=== PATIENT | male | born 1970 | race Caucasian/White ===

== ENCOUNTER 2017-11-05 09:00 | Emergency (ER) | payer SELFPAY ==
[2017-11-05 09:11] VITALS: BP 116/72
[2017-11-05] MEDS ORDERED: Tetan/Diph/Pertus SYR(Tdap)* 0.5 ML SYR(BOOSTRIX) use SYR IM ONE (09:31)
--- NOTE | 2017-11-05 09:49 | ED ---
Head Injury - HPI Summary HPI Summary: Patient presents with head injury which occurred at 7:00 this morning s/p mechanical fall. He reports he was getting up in the radiology asst and tripped on some toys on the floor in the dark, losing his footing and falling forward into a counter and striking the top of his head. He denies loss of consciousness but noticed blood in his he went to feel his head, felt a flap of skin and realized he needed to get this taken care of right away. He admits his vision is a little blurred but it is unclear if this is baseline or new for him. Denies headache, nausea, vomiting, numbness, tingling, weakness, confusion , memory issues/amnesia. He denies any other injuries his result of fall specifically neck. He was able to stand after the injury and has been ambulating without difficulty since. Triage noted he was drinking alcohol last night. Patient admits he does drink alcohol but does not have a concern for withdrawal while here today. He is unsure of his last tetanus vaccine but would like to have this boosted. - History Of Current Complaint Chief Complaint: EDLacSutureRecheck Stated Complaint: HEAD LAC Time Seen by Provider: 11/05/17 09:04 Hx Obtained From: Patient Pain Intensity: 1 - Allergies/Home Medications Allergies/Adverse Reactions: Allergies Allergy/AdvReac Type Severity Reaction Status Date / Time peanut Allergy Anaphylatic Verified 11/05/17 09:24 Shock raw vegetable Allergy Numbness Verified 11/05/17 09:25 And Tingling wheat Allergy GI Upset Verified 11/05/17 09:25 PMH/Surg Hx/FS Hx/Imm Hx Previously Healthy: Yes Endocrine/Hematology History: Denies: Hx Anticoagulant Therapy, Hx Blood Disorders - Surgical History Surgery Procedure, Year, and Place: SPINAL FUSION - Immunization History Date of Tetanus Vaccine: unsure Immunizations Up to Date: Unable to Obtain/Confirm Infectious Disease History: No Infectious Disease History: Denies: Traveled Outside the [place] in Last 30 Days - Social History Lives: With Family - sister and b-i-l Alcohol Use: Daily Substance Use Type: Reports: None Hx Tobacco Use: Yes Smoking Status (MU): Current Every Day Smoker Review of Systems Constitutional: Negative Negative: Fatigue Positive: Blurred Vision. Negative: Photophobia, Diplopia Negative: Epistaxis, Dental Pain, Ear Ache Cardiovascular: Negative Negative: Chest Pain Respiratory: Negative Negative: Shortness Of Breath Gastrointestinal: Negative Negative: Abdominal Pain, Vomiting, Diarrhea, Nausea Positive: no symptoms reported Musculoskeletal: Negative Skin: Other - scalp lac Neurological: Negative Psychological: Normal All Other Systems Reviewed And Are Negative: Yes Physical Exam Triage Information Reviewed: Yes Vital Signs On Initial Exam: Initial Vitals Temp Pulse Resp BP Pulse Ox 97.9 F 84 17 116/72 96 11/05/17 09:07 11/05/17 09:07 11/05/17 09:07 11/05/17 09:07 11/05/17 09:07 Vital Signs Reviewed: Yes Appearance: Positive: Well-Appearing, No Pain Distress Skin: Positive: Warm - lac on scalp, Skin Color Reflects Adequate Perfusion Eyes: Positive: Normal, EOMI, MANNIE - no photophobia, Conjunctiva Clear ENT: Positive: Normal ENT inspection, Hearing grossly normal, Pharynx normal - atraumatic, TMs normal - no hemotympanum. Negative: Nasal drainage Neck: Positive: Supple, Nontender Respiratory/Lung Sounds: Positive: Breath Sounds Present. Negative: Stridor Cardiovascular: Positive: Normal, RRR Abdomen Description: Positive: Nontender, Soft Bowel Sounds: Positive: Present Musculoskeletal: Positive: Normal, Strength/ROM Intact Neurological: Positive: Sensory/Motor Intact, Alert, Oriented to Person Place, Time, CN Intact II-III Psychiatric: Positive: Normal Diagnostics - Vital Signs Vital Signs Temp Pulse Resp BP Pulse Ox 11/05/17 09:07 97.9 F 84 17 116/72 96 - Laboratory Lab Statement: Any lab studies that have been ordered have been reviewed, and results considered in the medical decision making process. Discharge - Sign-Out/Discharge Documenting (check all that apply): Patient Departure - Discharge Plan Condition: Stable Disposition: HOME Patient Education Materials: Head Injury (ED), Staple Care (ED), Laceration (ED ) Referrals: [facility] [Outside] Additional Instructions: Rest, ice, keep head elevated to prevent bleeding, headache today Take acetaminophen 650mg-1000mg every 6 hours as needed for pain Keep wound clean and covered for 24-48 hours - after that time, you may remove dressing and gently wash wound with soap and water - rinse well and pat dry to avoid disrupting your sadie/causing bleeding Follow-up with PCP in 7 days for wound check, staple removal. Call today to schedule an appointment. *If in the meantime you develop bleeding, purulent drainage, fever, chills, return to the ED *If you develop headache, dizziness, change in vision, vomiting, numbness, tingling, weakness, syncope, return to the ED - Billing Disposition and Condition Condition: STABLE Disposition: Home
[2017-11-05] MEDS ORDERED: Lidocain 1% EPI 1:100,000 * 30 ML MDV INJ ONE (10:22)
[2017-11-05] MEDS ORDERED: Lidocaine 2% EPI 1:200000 MPF*10-20 ML VIAL ONE (10:27)
--- NOTE | 2017-11-05 10:33 | RAD ---
Indication: Fall with superior scalp injury. Flap laceration at the scalp. Comparison: No prior exams available on the [facility] PACS for comparison. Technique: Noncontrast CT vertex of skull through foramen magnum. Report: Frontal and RIGHT frontal scalp edema/infiltrative hematoma. No loculated hematoma evident. No conspicuous foreign body evident. Negative for calvarial or skull base fracture. Mild prominence of the cerebral sulci and moderate prominence of the cerebellar fissures. Negative for gallardo matter white matter obscuration, intra or extra-axial hemorrhage, or mass effect. Unremarkable partially visualized orbital contents. Partial opacification of the ethmoid sinuses. Negative for paranasal sinus fluid levels within the [id number]. Clear mastoid air spaces. IMPRESSION: #. No CT evidence for traumatic brain injury or calvarial fracture. #. Frontal and RIGHT frontal scalp edema/infiltrative hematoma corresponding with history of scalp laceration. No loculated hematoma evident. No conspicuous foreign body evident. #. Mild cerebral and mild to moderate cerebellar involutional change.
[2017-11-05] MEDS ORDERED: Bacitracin OINTMENT* 0.5% 0.5 oz TUBE ONE (11:43)
[2017-11-05] MEDS ORDERED: Bacitracin OINTMENT* 0.5% 0.5 oz TUBE TOPICAL ONE (11:49)
[2017-11-05] MEDS ORDERED: Acetaminophen TAB* 325 MG PO ONE (12:02)
== END 2017-11-05 12:27 | disposition home or self-care (01) ==
LOC: ED 09:00
DX: S01.01XA Laceration without foreign body of scalp, initial encounter (principal); F17.200 Nicotine dependence, unspecified, uncomplicated; W18.09XA Striking against other object with subsequent fall, initial encounter; Y92.9 Unspecified place or not applicable
CPT/HCPCS: 12001; 70450; 90471; 90715; 99282; A9270-GY

== ENCOUNTER 2017-11-10 08:30 | Inpatient (IN) | payer SELFPAY ==
[2017-11-10] MEDS ORDERED: NS 0.9% 1000 ML* 1,000 ML IV ONE ×2 (09:12→09:13)
[2017-11-10 09:31] LABS: Hematocrit 31 % (42-52); Hemoglobin 10.6 g/dl (14.0-18.0); Mean Corpuscular HGB Conc 34 g/dl (31-36); Mean Corpuscular Hemoglobin 35 pg (27-31); Mean Corpuscular Volume 103 fL (80-94); Red Blood Count 3.02 10^6/ul (4.00-5.40); Red Cell Distribution Width 13 % (10.5-15); White Blood Count 10.5 10^3/ul (3.5-10.8)
[2017-11-10 09:36] LABS: INR 1.18 (0.77-1.02)
[2017-11-10 09:45] LABS: EGFR Non-African American 106.7 (>60)
[2017-11-10 10:17] LABS: ABS Basophils 0 10^3/ul (0-0.2); ABS Eosinophils 0 10^3/ul (0-0.6); ABS Lymphocytes 0.8 10^3/ul (1.0-4.8); ABS Monocytes 1.3 10^3/ul (0-0.8); ABS Neutrophils 8.4 10^3/ul (1.5-7.7); ABS Nucleated RBC 0 10^3/ul; Eosinophil % 0 % (0-6); Lymphocyte % 7.4 % (25-47); Mean Platelet Volume 10.5 um3 (7.4-10.4); Nucleated Red Blood Cells % 0; Platelet Count 77 10^3/ul (150-450)
[2017-11-10] MEDS: Pantoprazole IV* 80 MG in NS 0.9% 250 ML* 250 ML IVPB SCH ×2 (10:43→20:36)
--- NOTE | 2017-11-10 10:53 | ED ---
GI/ HPI - HPI Summary HPI Summary: Patient is a 47-year-old male presenting to the ED after he woke this morning and was unable to make it to the restroom, complaining of a large amount of mixture between bright red blood in the stool with clots as well as dark stool. He is also endorsing yesterday having 1 times emesis of black "oil." He states he has never had any of these before. He states he was seen in the ED 5 days ago after sustaining a fall with several sadie to the head. CT brain obtained which shows no acute intracranial abnormality, but does show some involutional change which is at baseline for patient. PMH includes celiac disease and involutional change in the cerebellum. Smokes half a pack a day, endorses drinking 3-4 beers daily and denies any drug use. He states he recently moved here from [place]. Brother called to the charge nurse: States patient drinks from upon awakening in the morning until passing out at bedtime. He is currently awaiting to get into a treatment facility/detox center for such. - History of Current Complaint Chief Complaint: EDGIBleed Time Seen by Provider: 11/10/17 08:56 Stated Complaint: NAUSEA/DIZZINESS Hx Obtained From: Patient Onset/Duration: Started Days Ago Timing: Constant Severity: Moderate Current Severity: Moderate Pain Intensity: 0 Associated Signs and Symptoms: Positive: Black Tarry Stool, Bright Red Blood w/ Stool, Melena. Negative: Hematemesis, Pallor, Dizziness, Weakness, Lightheadedness, Abdominal Pain, UTI Symptoms Aggravating Factor(s): Nothing Alleviating Factor(s): Nothing - Yours - Allergy/Home Medications Allergies/Adverse Reactions: Allergies Allergy/AdvReac Type Severity Reaction Status Date / Time gluten Allergy See Comment Verified 11/10/17 09:06 peanut Allergy Anaphylatic Verified 11/10/17 09:06 Shock raw vegetable Allergy Numbness Verified 11/10/17 09:06 And Tingling wheat Allergy GI Upset Verified 11/10/17 09:06 Home Medications: Home Medications Ibuprofen TAB* [Motrin TAB* 400 MG] 400 mg PO Q6HR PRN 11/10/17 [History Confirmed 11/10/17] PMH/Surg Hx/FS Hx/Imm Hx Previously Healthy: Yes Endocrine/Hematology History: Denies: Hx Anticoagulant Therapy, Hx Blood Disorders - Surgical History Surgery Procedure, Year, and Place: SPINAL FUSION - Immunization History Date of Tetanus Vaccine: unsure Hx Pertussis Vaccination: No Immunizations Up to Date: Yes Infectious Disease History: No Infectious Disease History: Denies: Traveled Outside the [place] in Last 30 Days - Social History Occupation: Unemployed Lives: With Family Alcohol Use: Daily Alcohol Amount: 3-4beers/day Hx Substance Use: No Substance Use Type: Reports: None Hx Tobacco Use: Yes Smoking Status (MU): Light Every Day Tobacco Smoker Review of Systems Constitutional: Negative Negative: Fever, Chills, Fatigue, Skin Diaphoresis Negative: Palpitations, Chest Pain Negative: Shortness Of Breath, Cough Positive: Abdominal Pain - epigastric pain, Vomiting, Diarrhea - bright red blood with melena and clotting stool, Nausea Genitourinary: Negative Positive: no symptoms reported, see HPI Negative: Arthralgia, Myalgia Skin: Negative Neurological: Negative All Other Systems Reviewed And Are Negative: Yes Physical Exam Triage Information Reviewed: Yes Vital Signs On Initial Exam: Initial Vitals Temp Pulse Resp BP Pulse Ox 96.9 F 78 16 129/67 99 11/10/17 08:33 11/10/17 08:33 11/10/17 08:33 11/10/17 08:33 11/10/17 08:33 Vital Signs Reviewed: Yes Appearance: Positive: Well-Appearing, Well-Nourished Skin: Positive: Warm, Skin Color Reflects Adequate Perfusion Head/Face: Positive: Normal Head/Face Inspection Eyes: Positive: EOMI, MANNIE, Conjunctiva Clear Neck: Positive: Supple Respiratory/Lung Sounds: Positive: Clear to Auscultation, Breath Sounds Present Cardiovascular: Positive: Tachycardia Abdomen Description: Positive: Other: - tenderness to the epigastric region Bowel Sounds: Positive: Present Musculoskeletal: Positive: Normal, Strength/ROM Intact Neurological: Positive: Sensory/Motor Intact, Alert, Oriented to Person Place, Time, Speech Normal, Other - tremors in hands bilaterally AVPU Assessment: Alert Diagnostics - Vital Signs Vital Signs Temp Pulse Resp BP Pulse Ox 11/10/17 10:14 103 14 111/78 100 11/10/17 10:00 99 14 100 11/10/17 09:59 98 16 104/86 100 11/10/17 09:49 114 13 112/84 100 11/10/17 09:31 110 18 127/65 100 11/10/17 09:08 120 15 120/64 100 11/10/17 09:00 130 24 100 11/10/17 08:58 9 11/10/17 08:33 96.9 F 78 16 129/67 99 - Laboratory Lab Results: Lab Results 11/10/17 11/10/17 11/10/17 Range/Units 09:17 09:17 09:17 WBC 10.5 (3.5-10.8) 10^3/ul RBC 3.02 L (4.00-5.40) 10^6/ul Hgb 10.6 L (14.0-18.0) g/dl Hct 31 L (42-52) % MCV 103 H (80-94) fL MCH 35 H (27-31) pg MCHC 34 (31-36) g/dl RDW 13 (10.5-15) % Plt Count 77 L (150-450) 10^3/ul MPV 10.5 H (7.4-10.4) um3 Neut % (Auto) 80.1 (38-83) % Lymph % (Auto) 7.4 L (25-47) % Monona % (Auto) 12.3 H (0-7) % Eos % (Auto) 0 (0-6) % Baso % (Auto) 0.2 (0-2) % Absolute Neuts (auto) 8.4 H (1.5-7.7) 10^3/ul Absolute Lymphs (auto) 0.8 L (1.0-4.8) 10^3/ul Absolute Monos (auto) 1.3 H (0-0.8) 10^3/ul Absolute Eos (auto) 0 (0-0.6) 10^3/ul Absolute Basos (auto) 0 (0-0.2) 10^3/ul Absolute Nucleated RBC 0 10^3/ul Nucleated RBC % 0 INR (Anticoag Therapy) 1.18 H (0.77-1.02) APTT 31.2 (26.0-36.3) seconds Sodium 136 (135-145) mmol/L Potassium 4.5 (3.5-5.0) mmol/L Chloride 100 L (101-111) mmol/L Carbon Dioxide 21 L (22-32) mmol/L Anion Gap 15 H (2-11) mmol/L BUN 22 (6-24) mg/dL Creatinine 0.78 (0.67-1.17) mg/dL Est GFR ( Amer) 129.1 (>60) Est GFR (Non-Af Amer) 106.7 (>60) BUN/Creatinine Ratio 28.2 H (8-20) Glucose 212 H (70-100) mg/dL Calcium 8.7 (8.6-10.3) mg/dL Total Bilirubin 1.50 H (0.2-1.0) mg/dL AST 82 H (13-39) U/L ALT 36 (7-52) U/L Alkaline Phosphatase 123 H (34-104) U/L Total Protein 5.5 L (6.4-8.9) g/dL Albumin 3.5 (3.2-5.2) g/dL Globulin 2.0 (2-4) g/dL Albumin/Globulin Ratio 1.8 (1-3) Blood Type Antibody Screen 11/10/17 Range/Units 09:17 WBC (3.5-10.8) 10^3/ul RBC (4.00-5.40) 10^6/ul Hgb (14.0-18.0) g/dl Hct (42-52) % MCV (80-94) fL MCH (27-31) pg MCHC (31-36) g/dl RDW (10.5-15) % Plt Count (150-450) 10^3/ul MPV (7.4-10.4) um3 Neut % (Auto) (38-83) % Lymph % (Auto) (25-47) % Monona % (Auto) (0-7) % Eos % (Auto) (0-6) % Baso % (Auto) (0-2) % Absolute Neuts (auto) (1.5-7.7) 10^3/ul Absolute Lymphs (auto) (1.0-4.8) 10^3/ul Absolute Monos (auto) (0-0.8) 10^3/ul Absolute Eos (auto) (0-0.6) 10^3/ul Absolute Basos (auto) (0-0.2) 10^3/ul Absolute Nucleated RBC 10^3/ul Nucleated RBC % INR (Anticoag Therapy) (0.77-1.02) APTT (26.0-36.3) seconds Sodium (135-145) mmol/L Potassium (3.5-5.0) mmol/L Chloride (101-111) mmol/L Carbon Dioxide (22-32) mmol/L Anion Gap (2-11) mmol/L BUN (6-24) mg/dL Creatinine (0.67-1.17) mg/dL Est GFR ( Amer) (>60) Est GFR (Non-Af Amer) (>60) BUN/Creatinine Ratio (8-20) Glucose (70-100) mg/dL Calcium (8.6-10.3) mg/dL Total Bilirubin (0.2-1.0) mg/dL AST (13-39) U/L ALT (7-52) U/L Alkaline Phosphatase (34-104) U/L Total Protein (6.4-8.9) g/dL Albumin (3.2-5.2) g/dL Globulin (2-4) g/dL Albumin/Globulin Ratio (1-3) Blood Type A Positive Antibody Screen Negative Result Diagrams: 11/10/17 09:17 11/10/17 09:17 Lab Statement: Any lab studies that have been ordered have been reviewed, and results considered in the medical decision making process. GIGU Course/Dx - Course Course Of Treatment: During the course of treatment, the patient is evaluated for upper and lower GI bleed. He arrives today with bright red blood and dark tarry stools down the bilateral legs which he states he was unable to make it to the restroom in time. He is also endorsing will like emesis yesterday, but none currently. He states he feels otherwise well. Patient has a slightly jaundiced appearance and a slight tremor bilaterally. EOMI/MANNIE. Bowel sounds decreased. Lungs CTA, RRR. No pain on palpation throughout the abdomen. NO CVA tenderness. Denies any abdominal pain, nausea. States he has been having diarrhea over the past week and last normal bowel movement was over 1 week ago. He has not noticed any blood in the stool however. Patient does not take any medication, is a smoker and heavy drinker. On arrival, he is noted to be tachycardic at 125, other vital signs are stable. GI, Dr. Baker called to make aware of patient. Recommended continuing fluids and add octreotide. nLabs obtained which show a slightly decreased H&H of 10 and 31 and is currently thrombocytopenic. GI will see patient in the ED and will be admitted to hospital. - Diagnoses Provider Diagnoses: GI bleed - Physician Notifications Discussed Care Of Patient With: Elissa Baker Discharge - Sign-Out/Discharge Documenting (check all that apply): Patient Departure - - Discharge Plan Condition: Stable Disposition: ADMITTED TO [facility] - Billing Disposition and Condition Condition: STABLE Disposition: Admitted to [facility]
[2017-11-10] MEDS ORDERED: Octreotide Acetate* 50 MCG in NS 0.9% 50 ML* 50 ML IVPB ONE (11:08)
[2017-11-10] MEDS ORDERED: Ondansetron INJ* 2 MG/ML VIAL IV ONE (11:51)
[2017-11-10] MEDS ORDERED: Ondansetron INJ* 2 MG/ML VIAL IV PRN (12:13)
[2017-11-10] MEDS: NS 0.9% 1000 ML* 2,000 ML IV ONE ×2 (12:17→12:18)
--- NOTE | 2017-11-10 12:33 | HP ---
H&P (Free Text) History and Physical: [facility] History and Physical CC: coffee ground emesis HPI: 47M with spinal stenosis, neuropathy, celiac disease, h/o etoh dependence persents with coffee ground emesis and melena. The patient states the symptoms started at about 330am. He never had this before. He also reports weakness and lightheadedness. He had been evaluated in the past for his celiac disease with an egd which did not show any ulcers or varices at that time. The patient reports he was once told he had fatty liver but not cirrhosis. He drinks daily since the age of 21. His last drink was at 730pm yesterday. He denies any history of withdrawal. He also reports abdominal discomfort and nausea. No chest pain or shortness of breath. No fever or chills. ROS - as per HPI PMHx - spinal stenosis, neuropathy, celiac disease, h/o etoh dependence PSHx - spinal fusion All - gluten SocHx - daily drinker, 1/2ppd smoker, no drugs FamHx - denies PE Vital Signs: Temp Pulse Resp BP Pulse Ox 96.9 F 93 12 106/72 100 11/10/17 08:33 11/10/17 12:00 11/10/17 12:00 11/10/17 11:49 11/10/17 12:00 Gen - uncomfortable HEENT - ncat, eomi, perrl neck - no jvd cv - s1/s2, tachy pulm - cta, no wheeze abd - soft, mild tenderness ext - no cce neuro - non-focal Labs Laboratory Results - last 24 hr 11/10/17 11/10/17 11/10/17 09:17 09:17 09:17 WBC 10.5 RBC 3.02 L Hgb 10.6 L Hct 31 L MCV 103 H MCH 35 H MCHC 34 RDW 13 Plt Count 77 L MPV 10.5 H Neut % (Auto) 80.1 Lymph % (Auto) 7.4 L Burke % (Auto) 12.3 H Eos % (Auto) 0 Baso % (Auto) 0.2 Absolute Neuts (auto) 8.4 H Absolute Lymphs (auto) 0.8 L Absolute Monos (auto) 1.3 H Absolute Eos (auto) 0 Absolute Basos (auto) 0 Absolute Nucleated RBC 0 Nucleated RBC % 0 INR (Anticoag Therapy) 1.18 H APTT 31.2 Sodium 136 Potassium 4.5 Chloride 100 L Carbon Dioxide 21 L Anion Gap 15 H BUN 22 Creatinine 0.78 Est GFR ( Amer) 129.1 Est GFR (Non-Af Amer) 106.7 BUN/Creatinine Ratio 28.2 H Glucose 212 H Calcium 8.7 Magnesium 1.6 L Total Bilirubin 1.50 H AST 82 H ALT 36 Alkaline Phosphatase 123 H Total Protein 5.5 L Albumin 3.5 Globulin 2.0 Albumin/Globulin Ratio 1.8 Serum Alcohol < 10 Blood Type Antibody Screen 11/10/17 09:17 WBC RBC Hgb Hct MCV MCH MCHC RDW Plt Count MPV Neut % (Auto) Lymph % (Auto) Burke % (Auto) Eos % (Auto) Baso % (Auto) Absolute Neuts (auto) Absolute Lymphs (auto) Absolute Monos (auto) Absolute Eos (auto) Absolute Basos (auto) Absolute Nucleated RBC Nucleated RBC % INR (Anticoag Therapy) APTT Sodium Potassium Chloride Carbon Dioxide Anion Gap BUN Creatinine Est GFR ( Amer) Est GFR (Non-Af Amer) BUN/Creatinine Ratio Glucose Calcium Magnesium Total Bilirubin AST ALT Alkaline Phosphatase Total Protein Albumin Globulin Albumin/Globulin Ratio Serum Alcohol Blood Type A Positive Antibody Screen Negative Imaging CXR - pending RUQ sono - pending Impression 47M spinal stenosis, neuropathy, celiac disease, h/o etoh dependence presents with symptomatic anemia 2/2 ugi bleed Plan Neuro/psych - etoh dependence - monitor for withdrawal - thiamine/folate/mvi - wam protocol - ativan prn - sw consult CV - tachycardia - 2/2 volume depletion - iv hydration - bp ok Pulm - smoker - educated on benefits of smokng cessation - nicotine replacement ID - no evidence of infection GI - ugi bleed - npo - check ruq sono to eval for cirrhosis - anti-emetics prn - ppi/octreotide gtts - gi consult Renal - monitor lytes - monitor io Heme - symptomatic anemia - 2/2 gi bleed - serial cbc - transfuse to keep hgb > 7 Endo - check fs, niss Lines - piv PPx - gi/dvt Full Code Admit to ICU Critical Care Time: 85 mins
[2017-11-10] MEDS ORDERED: LORazepam INJ* 2 MG/ML 1 ML VIAL IV PUSH SCH (13:00)
--- NOTE | 2017-11-10 13:09 | RAD ---
INDICATION: Aspiration. COMPARISON: There are no relevant prior studies available for comparison. TECHNIQUE: A portable view of the chest was obtained. FINDINGS: Cardiac and mediastinal contours appear to be within normal limits. The lungs are hyperinflated and clear. No pleural effusion is seen. IMPRESSION: NO EVIDENCE FOR ACUTE DISEASE.
[2017-11-10 14:10] LABS: ABS Basophils 0 10^3/ul (0-0.2); ABS Eosinophils 0 10^3/ul (0-0.6); ABS Lymphocytes 0.5 10^3/ul (1.0-4.8); ABS Monocytes 0.8 10^3/ul (0-0.8); ABS Nucleated RBC 0 10^3/ul; Eosinophil % 0.1 % (0-6); Hematocrit 24 % (42-52); Hemoglobin 8.2 g/dl (14.0-18.0); Lymphocyte % 6.4 % (25-47); Mean Corpuscular HGB Conc 34 g/dl (31-36); Mean Corpuscular Hemoglobin 35 pg (27-31); Mean Corpuscular Volume 103 fL (80-94); Mean Platelet Volume 10.7 um3 (7.4-10.4); Nucleated Red Blood Cells % 0; Platelet Count 52 10^3/ul (150-450); Red Blood Count 2.33 10^6/ul (4.00-5.40); Red Cell Distribution Width 14 % (10.5-15); White Blood Count 8.4 10^3/ul (3.5-10.8)
[2017-11-10] MEDS ORDERED: fentaNYL* 50 MCG/ML 2 ML VIAL (100 MCG VIAL) ONE (14:27)
[2017-11-10] MEDS ORDERED: KETAMINE HCL* 50 MG/ML 10 ML VIAL ONE (14:27)
[2017-11-10] MEDS ORDERED: Midazolam* 1 MG/ML 5 ML VIAL (5 MG) ONE (14:27)
[2017-11-10] MEDS ORDERED: Atracurium* 10 MG/ML 10 ML VIAL ONE (14:27)
[2017-11-10] MEDS ORDERED: Magnesium Sulfate IV* 3 GM in NS 0.9% 100 ML* 100 ML IVPB ONE (14:38)
[2017-11-10] MEDS ORDERED: Octreotide Acetate* 500 MCG in NS 0.9% 100 ML* 100 ML IVPB SCH (15:00)
[2017-11-10] MEDS ORDERED: Mouth Piece, Nicotine* 1 EACH CARTRIDGE INH PRN (15:23)
[2017-11-10] MEDS ORDERED: Lidocaine 2% PF * 5 ML VIAL ONE (17:10)
[2017-11-10] MEDS ORDERED: Phenylephrine IV* 40 MCG/ML 10 ML SYRINGE ONE (17:10)
[2017-11-10] MEDS ORDERED: Dexamethasone IV* 4 MG/ML 1 ML (4 MG) ONE (17:11)
[2017-11-10] MEDS ORDERED: Succinylcholine* 20 MG/ML 10 ML VIAL ONE (17:11)
[2017-11-10] MEDS ORDERED: Propofol* 10 MG/ML 20 ML BTL IV PUSH ONE (17:11)
--- NOTE | 2017-11-10 19:52 | RAD ---
EXAM: US Abdomen Limited, Right Upper Quadrant CLINICAL HISTORY: 47 years old, male; Signs and symptoms; Vomiting; Patient HX: Gassy, vomiting blood, bloddy diarrhea since last night. ; Additional info: Eval for cirrhosis TECHNIQUE: Real-time ultrasound of the right upper quadrant with image documentation. COMPARISON: No relevant prior studies available. FINDINGS: Liver: Diffusely echogenic liver. No intrahepatic bile duct dilation. Gallbladder: Sonographic Lynne's sign is negative. No gallstones. Common bile duct: The common bile duct measures up to 0.3 cm in diameter. No stones. No dilation. Pancreas: Unremarkable as visualized. Right kidney: The right kidney measures 10.3 cm in length. Normal echogenicity. No hydronephrosis or stones. Aorta: The proximal aorta measures 1.9 cm in maximal diameter. IMPRESSION: Echogenic liver, which could reflect hepatic steatosis or other chronic underlying hepatocellular disease. To contact [facility] with a general question: [facility] - [phone] For direct physician to physician contact: Physician Hotline - [phone] [facility] ([facility] Facility ID #[id number])
[2017-11-10 19:57] LABS: ABS Basophils 0 10^3/ul (0-0.2); ABS Eosinophils 0 10^3/ul (0-0.6); ABS Lymphocytes 0.5 10^3/ul (1.0-4.8); ABS Monocytes 0.2 10^3/ul (0-0.8); ABS Neutrophils 5.7 10^3/ul (1.5-7.7); ABS Nucleated RBC 0 10^3/ul; Eosinophil % 0 % (0-6); Hematocrit 23 % (42-52); Hemoglobin 7.8 g/dl (14.0-18.0); Lymphocyte % 7.2 % (25-47); Mean Corpuscular HGB Conc 35 g/dl (31-36); Mean Corpuscular Hemoglobin 35 pg (27-31); Mean Corpuscular Volume 102 fL (80-94); Mean Platelet Volume 10.8 um3 (7.4-10.4); Nucleated Red Blood Cells % 0; Platelet Count 53 10^3/ul (150-450); Red Blood Count 2.21 10^6/ul (4.00-5.40); Red Cell Distribution Width 13 % (10.5-15); White Blood Count 6.3 10^3/ul (3.5-10.8)
[2017-11-10] MEDS: Mouth Piece, Nicotine* 1 EACH CARTRIDGE INH PRN (20:05)
[2017-11-10] MEDS: Nicotine Inhaler* 10 MG AMP INH PRN (20:05)
[2017-11-10 20:10] LABS: EGFR Non-African American 170.3 (>60)
[2017-11-10] MEDS: cefTRIAXone* 1 GM in NS 0.9% 50 ML BAG IVPB SCH (22:54)
--- NOTE | 2017-11-11 00:40 | CONS ---
CONSULTATION REPORT: DATE OF CONSULT: 11/10/17 REASON FOR CONSULT: Concern for GI bleeding. HISTORY OF PRESENT ILLNESS: Mr. Osman is a 47-year-old gentleman with a history of spinal stenosis, neuropathy, arthritis, celiac disease, alcohol abuse , and fatty liver disease, who is admitted with coffee-ground emesis and melena/ hematochezia. Mr. Osman provides the majority of his history. He recently moved from [place]. He states that he was in his usual state of health until last week when he developed an URI/cold. He was using ibuprofen for fever and aches for a week or two. He also had an episode in which he fell and hit his head last week and was seen [place] [facility] [place] he received sadie. ]Last night he started feeling abdominal pressure and discomfort in his epigastric area as well as nausea. He then began vomiting up black liquid. This happened 5 to 6 times over the night. He did not see any red blood in the emesis. This morning, he developed an episode of maroon, bloody and black stool with some clot. He had some fecal incontinence with this large bloody stool. He reports having worsening of his subacute to chronic balance issues today. He again states that he was using ibuprofen at least for the past week up to 3 times a day for the URI cold symptoms as well as the discomfort related to the head lac. He states that he drinks a few beers per day. Nursing informed me that patient's brother called and told the ER staff that the patient "drinks all day long." The patient states that he was told a while ago that he had a fatty liver. He thought perhaps it was mentioned a scarred liver, but he does not recognize cirrhosis as something he has been told he had in the past. He recalls having had an EGD done while in [place] in May 2015. They were apparently looking for celiac disease, which was apparently confirmed on that EGD. He also thinks that intestinal polyp and gastritis were noted at the EGD. He reports only rare acid indigestion and is not any PPI. PAST MEDICAL HISTORY/PAST SURGICAL HISTORY: Spinal stenosis with spinal fusion surgery in the past, neuropathy in bilateral lower extremities, arthritis, alcoholism or at least heavy alcohol use, some degree of liver disease question fatty versus alcohol (with unknown extent or severity), celiac disease, possible history of gastritis. MEDICATIONS: The patient reports only ibuprofen as needed. ALLERGIES: No known medical allergies. FAMILY HISTORY: The patient denies any family history of GI or liver disease. SOCIAL HISTORY: Moved recently from [place]. Previously working in [employer], not working at the moment. Drinks daily with quantity unclear. Smokes half pack a day. Denies drug use. REVIEW OF SYSTEMS: 10 out of 14 systems reviewed and negative except as above. PHYSICAL EXAM: Vital Signs: Heart rate up to 120, blood pressure 130s/70s, satting well on room air. General: Mildly anxious and tremulous gentleman. Able to provide history. No acute distress. HEENT: There is a stapled laceration on head. Pupils are anicteric. Neck: Supple. Trachea midline. Cardiovascular: Tachycardic, normal S1, S2. Pulmonary: Breathing comfortably. Lungs clear. Abdomen: Positive bowel sounds, soft, nontender, nondistended. No clear ascitics. Extremities: No edema. DIAGNOSTIC STUDIES/LAB DATA: Labs reviewed from initial admission. Notable for white count 10.5 and hematocrit of 31 with a platelet count 77. INR is 1.18. Comprehensive panel notable for AST and ALT that are mildly elevated at 82 and 36. Alk phos of 123, bilirubin of 1.5. Repeat labs seems to demonstrate that hematocrit dropped to 24 and then 23 on repeat. Studies: No available studies at the time of consult. IMPRESSION AND RECOMMENDATIONS: Mr. Osman is a 47-year-old gentleman with a history of heavy alcohol use, celiac disease, spinal stenosis, and fatty liver versus alcoholic liver disease of unknown severity, who is admitted with coffee- ground emesis and melena/hematochezia x1 day. Mr Osman is tachycardic, although he appears to be fluid responsive on reassessment. Hemodynamically otherwise stable. No further episodes of coffee- ground emesis since arrival. However, I am quite concerned about an upper GI bleed in this gentleman. Risk factors for peptic ulcer disease include his history of ibuprofen use over the last week. He also has risk factors for cirrhosis given his heavy alcohol use and supported by the abnormal LFTs and thrombocytopenia. Therefore, variceal bleed should also be considered in this case. - n.p.o. - IV PPI drip. - octreotide drip. - continuing to monitor CBC every 6 to 8 hours. - will plan for urgent EGD today likely with anesthesia given concern for possible significant bleeding source in upper GI tract as well as potential difficulty sedating a gentleman who drinks heavily. Thank you very much for this consult. Procedure report and final recommendations to follow. [id number]/[facility] #: [id number] MTDD
--- NOTE | 2017-11-11 00:48 | PRO ---
PROCEDURE REPORT: DATE OF PROCEDURE: 11/10/17 PROCEDURE: EGD. INDICATION: Coffee-ground emesis and melena/hematochezia. MEDICATIONS GIVEN: By anesthesia service. DESCRIPTION OF PROCEDURE: Full disclosure of risks were reviewed with the patient as detailed on the consent form. The patient was placed in left lateral decubitus position and monitored with continuous pulse oximetry, interval blood pressure monitoring, and direct observation. A bite block was placed between the teeth. An Olympus gastroscope was then inserted into the patient's mouth, advanced down the esophagus, into the stomach, and into the third portion of the duodenum. FINDINGS: Initial intubation into the esophagus was quite difficult. It is unclear if there was simply edema or if there is some aberrant anatomy. Ultimately, the scope was able to be slowly and carefully advanced into the esophagus. E: - There were no esophageal varices appreciated. - There were multiple scattered tiny esophageal erosions. There was a slightly larger erosion with eschar on the distal esophagus near the GE junction. There was no active bleeding from this area. Biopsied. G: - Scope was then slowly passed into the stomach. Stomach was examined in forward and retroflex views. There was no fresh or old blood seen anywhere in the stomach. - There were 3 medium-sized gastric ulcers ranging from 0.5 to 1 cm. These ulcers were clean based. - There was a very large (2-3 cm) and deep ulcer in the prepyloric antrum. This ulcer was largely clean based with the exceptions of a few flat segmented spots. No high risk stigmata felt to be targets for endotherapy. - A biopsy was obtained from the gastric antrum to send for CLOtes to rule out H. pylori. D: - The scope was then slowly advanced into the duodenum. - There was erythema without overt ulceration or erosion in the duodenal bulb. - No fresh or old blood was seen in the duodenum. The scope was then slowly withdrawn from the patient. He tolerated the procedure well and was returned to the recovery room. IMPRESSION: 1. Relatively difficult intubation into the esophagus, unclear if this is related to an altered anatomy versus edema. 2. No fresh or old blood seen on examination of the upper GI tract. 3. Several small/medium clean-based ulcers in the gastric antrum. A large and deep prepyloric gastric ulcer without high risk stigmata also noted. These are felt to be source of bleeding and anemia. 5. Erythema in the duodenal bulb without ulcers or erosions. 6. No esophageal or gastric varices. RECOMMENDATIONS: 1. Continue IV PPI for 72 hours . 2. Discontinue octreotide. 3. Given some concern for underlying cirrhosis, it may be prudent to begin a course of ceftriaxone as SBP prophylaxis while awaiting further workup to clarify if cirrhosis present (US pending at time of note) 4. Would keep n.p.o. for the rest of the evening. Can start clears and slowly advance over the next 1 to 2 days if hematocrit remains stable. 5. Closely monitor blood counts every 6 to 8 hours. 6. We will await CLOtest and esophageal biopsies. 7. Avoid NSAIDs. 8. Patient will need repeat EGD in 6-8 weeks to reassess gastric ulcers. [id number]/[facility] #: [id number] MTDD
[2017-11-11 01:15] LABS: ABS Basophils 0 10^3/ul (0-0.2); ABS Eosinophils 0 10^3/ul (0-0.6); ABS Lymphocytes 0.5 10^3/ul (1.0-4.8); ABS Monocytes 0.2 10^3/ul (0-0.8); ABS Neutrophils 4.5 10^3/ul (1.5-7.7); ABS Nucleated RBC 0 10^3/ul; Eosinophil % 0 % (0-6); Hematocrit 21 % (42-52); Hemoglobin 7.3 g/dl (14.0-18.0); Lymphocyte % 9.8 % (25-47); Mean Corpuscular HGB Conc 34 g/dl (31-36); Mean Corpuscular Hemoglobin 35 pg (27-31); Mean Corpuscular Volume 102 fL (80-94); Mean Platelet Volume 10.9 um3 (7.4-10.4); Nucleated Red Blood Cells % 0; Platelet Count 52 10^3/ul (150-450); Red Cell Distribution Width 14 % (10.5-15); White Blood Count 5.2 10^3/ul (3.5-10.8)
[2017-11-11] MEDS: Nicotine Inhaler* 10 MG AMP INH PRN (02:10)
[2017-11-11 04:56] LABS: ABS Basophils 0 10^3/ul (0-0.2); ABS Eosinophils 0 10^3/ul (0-0.6); ABS Lymphocytes 0.6 10^3/ul (1.0-4.8); ABS Monocytes 0.4 10^3/ul (0-0.8); ABS Nucleated RBC 0 10^3/ul; Eosinophil % 0 % (0-6); Hematocrit 20 % (42-52); Hemoglobin 6.9 g/dl (14.0-18.0); Lymphocyte % 11.6 % (25-47); Mean Corpuscular HGB Conc 34 g/dl (31-36); Mean Corpuscular Hemoglobin 35 pg (27-31); Mean Corpuscular Volume 103 fL (80-94); Mean Platelet Volume 11.1 um3 (7.4-10.4); Nucleated Red Blood Cells % 0; Platelet Count 51 10^3/ul (150-450); Red Blood Count 1.96 10^6/ul (4.00-5.40); Red Cell Distribution Width 13 % (10.5-15); White Blood Count 5.1 10^3/ul (3.5-10.8)
[2017-11-11 04:59] LABS: INR 1.08 (0.77-1.02)
[2017-11-11 05:11] LABS: EGFR Non-African American 186.8 (>60)
[2017-11-11] MEDS: Pantoprazole IV* 80 MG in NS 0.9% 250 ML* 250 ML IVPB SCH ×2 (06:46→16:54)
[2017-11-11] MEDS: Thiamine TAB* 100 MG TAB PO SCH (08:08)
[2017-11-11] MEDS: Multivitamins/Minerals TAB PO SCH (08:09)
[2017-11-11] MEDS: Folic Acid TAB* 1 MG PO SCH (08:09)
--- NOTE | 2017-11-11 09:41 | PN ---
Date of Service: 11/11/17 Critical Care Services: HPI: 47M with spinal stenosis, neuropathy, celiac disease, h/o etoh dependence persents with UGI Bleed 11/11: Multiple ulcers in the stomach on EGD. No further bleeding. Vital Signs: Temp Pulse Resp BP SpO2 FiO2 99.2 F 79 28 97/64 88 11/11/17 07:52 11/11/17 09:00 11/11/17 09:00 11/11/17 08:50 11/11/17 09:00 Physical Exam: Gen - uncomfortable HEENT - ncat, eomi, perrl neck - no jvd cv - s1/s2, tachy pulm - cta, no wheeze abd - soft, mild tenderness ext - no cce neuro - non-focal Fluid Balance (Past 24 Hours): I= O= Net Intake & Output 11/09/17 11/10/17 11/11/17 11/12/17 06:59 06:59 06:59 06:59 Intake Total 7353 15 Output Total 1475 700 Balance 5878 -685 Weight 60.5 kg Intake: IV Fluids 5100 LR 1100 NS (0.9%) 2000 IVPB 1765 LR 1765 Medicated IV 443 Protonix 295 ceftriaxone 50 magnesium 98 Oral 45 15 Output: Urine 1025 700 Liquid Stool 450 Other: Date of Last Bowel 11/10/2017 Movement # Bowel Movements 1 Labs: Laboratory Results - last 24 hr 11/10/17 11/10/17 11/10/17 09:17 09:17 09:17 WBC 10.5 RBC 3.02 L Hgb 10.6 L Hct 31 L MCV 103 H MCH 35 H MCHC 34 RDW 13 Plt Count 77 L MPV 10.5 H Neut % (Auto) 80.1 Lymph % (Auto) 7.4 L [place] % (Auto) 12.3 H Eos % (Auto) 0 Baso % (Auto) 0.2 Absolute Neuts (auto) 8.4 H Absolute Lymphs (auto) 0.8 L Absolute Monos (auto) 1.3 H Absolute Eos (auto) 0 Absolute Basos (auto) 0 Absolute Nucleated RBC 0 Nucleated RBC % 0 INR (Anticoag Therapy) 1.18 H APTT 31.2 Sodium 136 Potassium 4.5 Chloride 100 L Carbon Dioxide 21 L Anion Gap 15 H BUN 22 Creatinine 0.78 Est GFR ( Amer) 129.1 Est GFR (Non-Af Amer) 106.7 BUN/Creatinine Ratio 28.2 H Glucose 212 H Calcium 8.7 Magnesium 1.6 L Total Bilirubin 1.50 H AST 82 H ALT 36 Alkaline Phosphatase 123 H Total Protein 5.5 L Albumin 3.5 Globulin 2.0 Albumin/Globulin Ratio 1.8 Serum Alcohol < 10 Blood Type Antibody Screen Crossmatch 11/10/17 11/10/17 11/10/17 09:17 13:55 13:55 WBC 8.4 RBC 2.33 L Hgb 8.2 L Hct 24 L MCV 103 H MCH 35 H MCHC 34 RDW 14 Plt Count 52 L MPV 10.7 H Neut % (Auto) 83.1 H Lymph % (Auto) 6.4 L [place] % (Auto) 10.1 H Eos % (Auto) 0.1 Baso % (Auto) 0.3 Absolute Neuts (auto) 7.0 Absolute Lymphs (auto) 0.5 L Absolute Monos (auto) 0.8 Absolute Eos (auto) 0 Absolute Basos (auto) 0 Absolute Nucleated RBC 0 Nucleated RBC % 0 INR (Anticoag Therapy) APTT Sodium Potassium Chloride Carbon Dioxide Anion Gap BUN Creatinine Est GFR ( Amer) Est GFR (Non-Af Amer) BUN/Creatinine Ratio Glucose Calcium Magnesium 1.5 L Total Bilirubin AST ALT Alkaline Phosphatase Total Protein Albumin Globulin Albumin/Globulin Ratio Serum Alcohol Blood Type A Positive Antibody Screen Negative Crossmatch See Detail 11/10/17 11/10/17 11/11/17 19:45 19:45 00:05 WBC 6.3 5.2 RBC 2.21 L 2.10 L Hgb 7.8 L 7.3 L Hct 23 L 21 L MCV 102 H 102 H MCH 35 H 35 H MCHC 35 34 RDW 13 14 Plt Count 53 L 52 L MPV 10.8 H 10.9 H Neut % (Auto) 89.6 H 86.5 H Lymph % (Auto) 7.2 L 9.8 L [place] % (Auto) 3.0 3.6 Eos % (Auto) 0 0 Baso % (Auto) 0.2 0.1 Absolute Neuts (auto) 5.7 4.5 Absolute Lymphs (auto) 0.5 L 0.5 L Absolute Monos (auto) 0.2 0.2 Absolute Eos (auto) 0 0 Absolute Basos (auto) 0 0 Absolute Nucleated RBC 0 0 Nucleated RBC % 0 0 INR (Anticoag Therapy) APTT Sodium 140 Potassium 4.0 Chloride 110 Carbon Dioxide 23 Anion Gap 7 BUN 18 Creatinine 0.52 L Est GFR ( Amer) 206.1 Est GFR (Non-Af Amer) 170.3 BUN/Creatinine Ratio 34.6 H Glucose 130 H Calcium 7.7 L Magnesium Total Bilirubin AST ALT Alkaline Phosphatase Total Protein Albumin Globulin Albumin/Globulin Ratio Serum Alcohol Blood Type Antibody Screen Crossmatch 11/11/17 11/11/17 11/11/17 04:36 04:36 04:36 WBC 5.1 RBC 1.96 L Hgb 6.9 L Hct 20 L MCV 103 H MCH 35 H MCHC 34 RDW 13 Plt Count 51 L MPV 11.1 H Neut % (Auto) 79.6 Lymph % (Auto) 11.6 L [place] % (Auto) 8.7 H Eos % (Auto) 0 Baso % (Auto) 0.1 Absolute Neuts (auto) 4.0 Absolute Lymphs (auto) 0.6 L Absolute Monos (auto) 0.4 Absolute Eos (auto) 0 Absolute Basos (auto) 0 Absolute Nucleated RBC 0 Nucleated RBC % 0 INR (Anticoag Therapy) 1.08 H APTT Sodium 138 Potassium 3.8 Chloride 108 Carbon Dioxide 27 Anion Gap 3 BUN 16 Creatinine 0.48 L Est GFR ( Amer) 226.1 Est GFR (Non-Af Amer) 186.8 BUN/Creatinine Ratio 33.3 H Glucose 132 H Calcium 7.8 L Magnesium 1.9 Total Bilirubin AST ALT Alkaline Phosphatase Total Protein Albumin Globulin Albumin/Globulin Ratio Serum Alcohol Blood Type Antibody Screen Crossmatch Studies: CXR 11/10 IMPRESSION: NO EVIDENCE FOR ACUTE DISEASE. Abd US 11/10 IMPRESSION: Echogenic liver, which could reflect hepatic steatosis or other chronic underlying hepatocellular disease. EGD 11/10 IMPRESSION: 1. Relatively difficult intubation into the esophagus, unclear if this is related to an altered anatomy versus edema. 2. No fresh or old blood seen on examination of the upper GI tract. 3. Several small/medium clean-based ulcers in the gastric antrum. A large and deep prepyloric gastric ulcer without high risk stigmata also noted. These are felt to be source of bleeding and anemia. 5. Erythema in the duodenal bulb without ulcers or erosions. 6. No esophageal or gastric varices. Impression: 47M spinal stenosis, neuropathy, celiac disease, h/o etoh dependence presents with symptomatic anemia 2/2 peptic ulcer disease Plan: Neuro/psych - etoh dependence - monitor for withdrawal - thiamine/folate/mvi - wam protocol - ativan prn - sw consult CV - tachycardia - 2/2 volume depletion - iv hydration - bp ok Pulm - smoker - educated on benefits of smoking cessation - nicotine replacement ID - no evidence of infection GI - UGI bleed - PUD on EGD, no varices - c/w ppi gtt - gonzalo quezada probable underlying liver disease - clear liquid diet and advance as tolerated - gi following Renal - monitor lytes - monitor io Heme - symptomatic anemia, thrombocytopenia - 2/2 gi bleed - serial cbc - transfuse to keep hgb > 7 - keep plt > 10 Endo - check fs, niss Lines - piv PPx - gi/dvt Full Code Critical Care Time: 45 mins
[2017-11-11] MEDS: Nicotine PATCH 14 MG/24 HR* PATCH TRANSDERM SCH (12:31)
[2017-11-11 13:27] LABS: ABS Basophils 0 10^3/ul (0-0.2); ABS Eosinophils 0 10^3/ul (0-0.6); ABS Lymphocytes 1.4 10^3/ul (1.0-4.8); ABS Monocytes 0.7 10^3/ul (0-0.8); ABS Neutrophils 5.3 10^3/ul (1.5-7.7); ABS Nucleated RBC 0 10^3/ul; Eosinophil % 0 % (0-6); Hematocrit 29 % (42-52); Hemoglobin 9.9 g/dl (14.0-18.0); Lymphocyte % 19.2 % (25-47); Mean Corpuscular HGB Conc 34 g/dl (31-36); Mean Corpuscular Hemoglobin 34 pg (27-31); Mean Corpuscular Volume 98 fL (80-94); Mean Platelet Volume 11.9 um3 (7.4-10.4); Nucleated Red Blood Cells % 0; Platelet Count 53 10^3/ul (150-450); Red Blood Count 2.96 10^6/ul (4.00-5.40); Red Cell Distribution Width 17 % (10.5-15); White Blood Count 7.5 10^3/ul (3.5-10.8)
[2017-11-11] MEDS: cefTRIAXone* 1 GM in NS 0.9% 50 ML BAG IVPB SCH (21:31)
[2017-11-11] MEDS: diPHENhydraMINE PO* 25 MG PO PRN (23:08)
[2017-11-12] MEDS: Pantoprazole IV* 80 MG in NS 0.9% 250 ML* 250 ML IVPB SCH ×2 (03:03→14:58)
[2017-11-12] MEDS: Nicotine Patch Removal NOTE FOLLOW UP SCH (05:42)
[2017-11-12 06:45] LABS: ABS Basophils 0 10^3/ul (0-0.2); ABS Eosinophils 0.1 10^3/ul (0-0.6); ABS Lymphocytes 1.1 10^3/ul (1.0-4.8); ABS Monocytes 0.3 10^3/ul (0-0.8); ABS Neutrophils 3.1 10^3/ul (1.5-7.7); ABS Nucleated RBC 0 10^3/ul; Eosinophil % 1.6 % (0-6); Hematocrit 28 % (42-52); Hemoglobin 9.8 g/dl (14.0-18.0); Mean Corpuscular HGB Conc 35 g/dl (31-36); Mean Corpuscular Hemoglobin 34 pg (27-31); Mean Corpuscular Volume 97 fL (80-94); Mean Platelet Volume 11.1 um3 (7.4-10.4); Nucleated Red Blood Cells % 0.1; Platelet Count 54 10^3/ul (150-450); Red Blood Count 2.92 10^6/ul (4.00-5.40); Red Cell Distribution Width 16 % (10.5-15); White Blood Count 4.5 10^3/ul (3.5-10.8)
[2017-11-12 07:02] LABS: EGFR Non-African American 163.1 (>60)
[2017-11-12] MEDS ORDERED: Potassium Chlor TAB* 20 MEQ TAB.ER PO ONE (07:28)
[2017-11-12] MEDS: Acetaminophen TAB* 325 MG PO PRN ×3 (07:48→21:29)
[2017-11-12] MEDS: Multivitamins/Minerals TAB PO SCH (07:49)
[2017-11-12] MEDS: Folic Acid TAB* 1 MG PO SCH (07:49)
[2017-11-12] MEDS: Thiamine TAB* 100 MG TAB PO SCH (07:49)
[2017-11-12] MEDS: Nicotine PATCH 14 MG/24 HR* PATCH TRANSDERM SCH (07:50)
[2017-11-12] MEDS ORDERED: Magnesium Sulfate 2 GM IV* 2 GM/50 ML BAG IVPB ONE (08:39)
[2017-11-12] MEDS ORDERED: Magnesium Oxide TAB* 400 MG PO ONE (09:20)
--- NOTE | 2017-11-12 16:15 | PN ---
Subjective Date of Service: 11/12/17 Interval History: Tolerating clear liquids and would like to advance Denies anxiety, MEYERS, confusion, tremulousness Objective Active Medications: Acetaminophen (Tylenol Tab*) 650 mg PO Q4H PRN PRN Reason: PAIN Last Admin: 11/12/17 15:03 Dose: 650 mg Device (Nicotine Mouth Piece*) 1 each INH .USE WITH NICOTROL PRN PRN Reason: CRAVING Last Admin: 11/10/17 20:05 Dose: 1 each Diphenhydramine HCl (Benadryl Po*) 25 mg PO BEDTIME PRN PRN Reason: INSOMNIA Last Admin: 11/11/17 23:08 Dose: 25 mg Folic Acid (Folvite Tab*) 1 mg PO DAILY [facility] Last Admin: 11/12/17 07:49 Dose: 1 mg Pantoprazole Sodium 80 mg/ (Sodium Chloride) 250 mls @ 25 mls/hr IVPB Q10H [facility] Last Admin: 11/12/17 14:58 Dose: 25 mls/hr Ceftriaxone Sodium 1 gm/ (Sodium Chloride) 50 mls @ 200 mls/hr IVPB Q24H [facility] Last Admin: 11/11/17 21:31 Dose: 200 mls/hr Lorazepam (Ativan Inj*) 0 - 3 mg IV PUSH .PER [facility] [place] PROTOCOL [facility]; Protocol Multivitamins/Minerals (Theragran/Minerals Tab*) 1 tab PO DAILY [facility] Last Admin: 11/12/17 07:49 Dose: 1 tab Nicotine (Nicotine Inhaler*) 10 mg INH Q2H PRN PRN Reason: CRAVING Last Admin: 11/11/17 02:10 Dose: 10 mg Nicotine (Nicotine Patch 14 Mg/24 Hr*) 1 patch TRANSDERM DAILY [facility] Last Admin: 11/12/17 07:50 Dose: 1 patch Ondansetron HCl (Zofran Inj*) 4 mg IV Q6H PRN PRN Reason: NAUSEA Pharmacy Profile Note (Nicotine Patch Removal Note*) 1 note FOLLOW UP 0600 [facility] Last Admin: 11/12/17 05:42 Dose: Not Given Thiamine HCl (Vitamin B-1 Tab*) 100 mg PO DAILY [facility] Last Admin: 11/12/17 07:49 Dose: 100 mg Vital Signs - 8 hr 11/12/17 11:29 Temperature 98.3 F Pulse Rate 74 Respiratory 16 Rate Blood Pressure 119/61 (mmHg) O2 Sat by Pulse 100 Oximetry Oxygen Devices in Use Now: None Appearance: sitting up in bed, NAD Eyes: No Scleral Icterus, PERRLA Ears/Nose/Mouth/Throat: NL Teeth, Lips, Gums, Clear Oropharnyx Neck: NL Appearance and Movements; NL JVP, Trachea Midline Respiratory: Symmetrical Chest Expansion and Respiratory Effort, Clear to Auscultation Cardiovascular: RRR Abdominal: NL Sounds; No Tenderness; No Distention Lymphatic: No Cervical Adenopathy Extremities: No Edema Skin: No Rash or Ulcers Neurological: Alert and Oriented x 3 Result Diagrams: 11/12/17 06:30 11/12/17 06:30 Additional Lab and Data: Lab Results 11/10/17 11/10/17 11/10/17 Range/Units 09:17 09:17 09:17 WBC 10.5 (3.5-10.8) 10^3/ul RBC 3.02 L (4.00-5.40) 10^6/ul Hgb 10.6 L (14.0-18.0) g/dl Hct 31 L (42-52) % MCV 103 H (80-94) fL MCH 35 H (27-31) pg MCHC 34 (31-36) g/dl RDW 13 (10.5-15) % Plt Count 77 L (150-450) 10^3/ul MPV 10.5 H (7.4-10.4) um3 Neut % (Auto) 80.1 (38-83) % Lymph % (Auto) 7.4 L (25-47) % [place] % (Auto) 12.3 H (0-7) % Eos % (Auto) 0 (0-6) % Baso % (Auto) 0.2 (0-2) % Absolute Neuts (auto) 8.4 H (1.5-7.7) 10^3/ul Absolute Lymphs (auto) 0.8 L (1.0-4.8) 10^3/ul Absolute Monos (auto) 1.3 H (0-0.8) 10^3/ul Absolute Eos (auto) 0 (0-0.6) 10^3/ul Absolute Basos (auto) 0 (0-0.2) 10^3/ul Absolute Nucleated RBC 0 10^3/ul Nucleated RBC % 0 INR (Anticoag Therapy) 1.18 H (0.77-1.02) APTT 31.2 (26.0-36.3) seconds Sodium 136 (135-145) mmol/L Potassium 4.5 (3.5-5.0) mmol/L Chloride 100 L (101-111) mmol/L Carbon Dioxide 21 L (22-32) mmol/L Anion Gap 15 H (2-11) mmol/L BUN 22 (6-24) mg/dL Creatinine 0.78 (0.67-1.17) mg/dL Est GFR ( Amer) 129.1 (>60) Est GFR (Non-Af Amer) 106.7 (>60) BUN/Creatinine Ratio 28.2 H (8-20) Glucose 212 H (70-100) mg/dL Calcium 8.7 (8.6-10.3) mg/dL Total Bilirubin 1.50 H (0.2-1.0) mg/dL AST 82 H (13-39) U/L ALT 36 (7-52) U/L Alkaline Phosphatase 123 H (34-104) U/L Total Protein 5.5 L (6.4-8.9) g/dL Albumin 3.5 (3.2-5.2) g/dL Globulin 2.0 (2-4) g/dL Albumin/Globulin Ratio 1.8 (1-3) Blood Type Antibody Screen 11/10/17 Range/Units 09:17 WBC (3.5-10.8) 10^3/ul RBC (4.00-5.40) 10^6/ul Hgb (14.0-18.0) g/dl Hct (42-52) % MCV (80-94) fL MCH (27-31) pg MCHC (31-36) g/dl RDW (10.5-15) % Plt Count (150-450) 10^3/ul MPV (7.4-10.4) um3 Neut % (Auto) (38-83) % Lymph % (Auto) (25-47) % [place] % (Auto) (0-7) % Eos % (Auto) (0-6) % Baso % (Auto) (0-2) % Absolute Neuts (auto) (1.5-7.7) 10^3/ul Absolute Lymphs (auto) (1.0-4.8) 10^3/ul Absolute Monos (auto) (0-0.8) 10^3/ul Absolute Eos (auto) (0-0.6) 10^3/ul Absolute Basos (auto) (0-0.2) 10^3/ul Absolute Nucleated RBC 10^3/ul Nucleated RBC % INR (Anticoag Therapy) (0.77-1.02) APTT (26.0-36.3) seconds Sodium (135-145) mmol/L Potassium (3.5-5.0) mmol/L Chloride (101-111) mmol/L Carbon Dioxide (22-32) mmol/L Anion Gap (2-11) mmol/L BUN (6-24) mg/dL Creatinine (0.67-1.17) mg/dL Est GFR ( Amer) (>60) Est GFR (Non-Af Amer) (>60) BUN/Creatinine Ratio (8-20) Glucose (70-100) mg/dL Calcium (8.6-10.3) mg/dL Total Bilirubin (0.2-1.0) mg/dL AST (13-39) U/L ALT (7-52) U/L Alkaline Phosphatase (34-104) U/L Total Protein (6.4-8.9) g/dL Albumin (3.2-5.2) g/dL Globulin (2-4) g/dL Albumin/Globulin Ratio (1-3) Blood Type A Positive Antibody Screen Negative Microbiology and Other Data: Microbiology 11/10/17 17:39 CLOtest - Final Gastric Antrum 11/10/17 18:00 Nasal Screen MRSA (PCR) - Final Nasal Mrsa Not Detected Assess/Plan/Problems-Billing Assessment: 47 yo M h/o etoh dependence, celiac disease p/w coffee ground emesis and melena found with symptomatic anemia secondary to multiple gastric ulcers - Patient Problems (1) Acute blood loss anemia Comment: peptic ulcer disease maintain PPI gtt 1 more day then transition to PO advance diet today H/H stable (2) Alcohol dependence Comment: counseled cessation thiamine/folic acid has not required WAM US RUQ not definitive for cirrohsis but will c/w CTX for SBP prophylaxis in setting of GIB (3) Nicotine abuse Comment: nicotine replacement
[2017-11-12] MEDS: cefTRIAXone* 1 GM in NS 0.9% 50 ML BAG IVPB SCH (21:31)
[2017-11-12] MEDS: Melatonin 3 MG TAB PO PRN (22:46)
[2017-11-13] MEDS: HYDROcodone/ACETAMIN 5-325 MG* 1 TAB PO PRN ×3 (00:04→22:41)
[2017-11-13] MEDS: Pantoprazole IV* 80 MG in NS 0.9% 250 ML* 250 ML IVPB SCH (01:49)
[2017-11-13] MEDS: Nicotine Patch Removal NOTE FOLLOW UP SCH (04:43)
[2017-11-13 06:12] LABS: Hematocrit 27 % (42-52); Hemoglobin 9.3 g/dl (14.0-18.0); Mean Corpuscular HGB Conc 34 g/dl (31-36); Mean Corpuscular Hemoglobin 34 pg (27-31); Mean Corpuscular Volume 98 fL (80-94); Mean Platelet Volume 11.1 um3 (7.4-10.4); Platelet Count 62 10^3/ul (150-450); Red Blood Count 2.75 10^6/ul (4.00-5.40); Red Cell Distribution Width 16 % (10.5-15)
[2017-11-13 06:27] LABS: EGFR Non-African American 191.4 (>60)
[2017-11-13 06:38] LABS: ABS Basophils 0.1 10^3/ul (0-0.2); ABS Eosinophils 0.2 10^3/ul (0-0.6); ABS Lymphocytes 1.3 10^3/ul (1.0-4.8); ABS Monocytes 0.5 10^3/ul (0-0.8); ABS Neutrophils 1.9 10^3/ul (1.5-7.7); ABS Nucleated RBC 0 10^3/ul; Eosinophil % 4.7 % (0-6); Lymphocyte % 33.2 % (25-47); Nucleated Red Blood Cells % 0.1
[2017-11-13] MEDS ORDERED: Magnesium Sulfate 2 GM IV* 2 GM/50 ML BAG IVPB ONE (07:19)
[2017-11-13] MEDS: Folic Acid TAB* 1 MG PO SCH (08:20)
[2017-11-13] MEDS: Omeprazole CAP* 20 MG PO SCH ×2 (08:20→19:24)
[2017-11-13] MEDS: Thiamine TAB* 100 MG TAB PO SCH (08:20)
[2017-11-13] MEDS: Multivitamins/Minerals TAB PO SCH (08:20)
[2017-11-13] MEDS: Nicotine PATCH 14 MG/24 HR* PATCH TRANSDERM SCH (08:33)
[2017-11-13] MEDS ORDERED: Magnesium Sulfate IV* 2 GM in NS 0.9% 100 ML* 100 ML IVPB ONE (09:00)
[2017-11-13] MEDS ORDERED: NS 0.9% 1000 ML* 1,000 ML IV SCH (13:45)
[2017-11-13] MEDS: Nicotine Inhaler* 10 MG AMP INH PRN ×2 (13:45→19:36)
[2017-11-13] MEDS: Mouth Piece, Nicotine* 1 EACH CARTRIDGE INH PRN (13:53)
--- NOTE | 2017-11-13 15:16 | PN ---
Subjective Date of Service: 11/13/17 Interval History: Feels "better" today no bleeding noted Tolerating advanced diet Objective Active Medications: Acetaminophen (Tylenol Tab*) 650 mg PO Q4H PRN PRN Reason: PAIN Last Admin: 11/12/17 21:29 Dose: 650 mg Hydrocodone Bitart/Acetaminophen ([place] 5-325 Tab*) 1 tab PO Q6H PRN PRN Reason: PAIN Last Admin: 11/13/17 10:16 Dose: 1 tab Device (Nicotine Mouth Piece*) 1 each INH .USE WITH NICOTROL PRN PRN Reason: CRAVING Last Admin: 11/13/17 13:53 Dose: 1 each Diphenhydramine HCl (Benadryl Po*) 25 mg PO BEDTIME PRN PRN Reason: INSOMNIA Last Admin: 11/11/17 23:08 Dose: 25 mg Folic Acid (Folvite Tab*) 1 mg PO DAILY [facility] Last Admin: 11/13/17 08:20 Dose: 1 mg Ceftriaxone Sodium 1 gm/ (Sodium Chloride) 50 mls @ 200 mls/hr IVPB Q24H [place] Last Admin: 11/12/17 21:31 Dose: 200 mls/hr Sodium Chloride (Ns 0.9% 1000 Ml*) 1,000 mls @ 200 mls/hr IV PER RATE [place] Stop: 11/13/17 18:44 Last Admin: 11/13/17 13:45 Dose: 200 mls/hr Lorazepam (Ativan Inj*) 0 - 3 mg IV PUSH .PER [facility] PROTOCOL [place]; Protocol Melatonin (Melatonin) 3 mg PO BEDTIME PRN; Protocol PRN Reason: SLEEP Last Admin: 11/12/17 22:46 Dose: 3 mg Multivitamins/Minerals (Theragran/Minerals Tab*) 1 tab PO DAILY [facility] Last Admin: 11/13/17 08:20 Dose: 1 tab Nicotine (Nicotine Inhaler*) 10 mg INH Q2H PRN PRN Reason: CRAVING Last Admin: 11/13/17 13:45 Dose: 10 mg Nicotine (Nicotine Patch 14 Mg/24 Hr*) 1 patch TRANSDERM DAILY [facility] Last Admin: 11/13/17 08:33 Dose: 1 patch Omeprazole (Prilosec Cap*) 20 mg PO BID [facility] Last Admin: 11/13/17 08:20 Dose: 20 mg Ondansetron HCl (Zofran Inj*) 4 mg IV Q6H PRN PRN Reason: NAUSEA Pharmacy Profile Note (Nicotine Patch Removal Note*) 1 note FOLLOW UP 0600 [facility] Last Admin: 11/13/17 04:43 Dose: Not Given Thiamine HCl (Vitamin B-1 Tab*) 100 mg PO DAILY [facility] Last Admin: 11/13/17 08:20 Dose: 100 mg Vital Signs - 8 hr 11/13/17 11/13/17 11/13/17 07:35 08:00 10:16 Temperature 97.8 F Pulse Rate 63 Respiratory 16 16 16 Rate Blood Pressure 89/67 (mmHg) O2 Sat by Pulse 98 Oximetry 11/13/17 11/13/17 11:33 12:34 Temperature 98.1 F Pulse Rate 75 Respiratory 18 18 Rate Blood Pressure 89/59 (mmHg) O2 Sat by Pulse 100 Oximetry Oxygen Devices in Use Now: None Appearance: NAD Eyes: No Scleral Icterus, PERRLA Ears/Nose/Mouth/Throat: - - sadie on cranium c/d/i Neck: NL Appearance and Movements; NL JVP, Trachea Midline Respiratory: Symmetrical Chest Expansion and Respiratory Effort, Clear to Auscultation Cardiovascular: RRR Abdominal: NL Sounds; No Tenderness; No Distention, No Hepatosplenomegaly Extremities: No Edema Skin: No Rash or Ulcers Neurological: Alert and Oriented x 3 Result Diagrams: 11/13/17 05:39 11/13/17 05:39 Additional Lab and Data: Lab Results 11/10/17 11/10/17 11/10/17 Range/Units 09:17 09:17 09:17 WBC 10.5 (3.5-10.8) 10^3/ul RBC 3.02 L (4.00-5.40) 10^6/ul Hgb 10.6 L (14.0-18.0) g/dl Hct 31 L (42-52) % MCV 103 H (80-94) fL MCH 35 H (27-31) pg MCHC 34 (31-36) g/dl RDW 13 (10.5-15) % Plt Count 77 L (150-450) 10^3/ul MPV 10.5 H (7.4-10.4) um3 Neut % (Auto) 80.1 (38-83) % Lymph % (Auto) 7.4 L (25-47) % Bulloch % (Auto) 12.3 H (0-7) % Eos % (Auto) 0 (0-6) % Baso % (Auto) 0.2 (0-2) % Absolute Neuts (auto) 8.4 H (1.5-7.7) 10^3/ul Absolute Lymphs (auto) 0.8 L (1.0-4.8) 10^3/ul Absolute Monos (auto) 1.3 H (0-0.8) 10^3/ul Absolute Eos (auto) 0 (0-0.6) 10^3/ul Absolute Basos (auto) 0 (0-0.2) 10^3/ul Absolute Nucleated RBC 0 10^3/ul Nucleated RBC % 0 INR (Anticoag Therapy) 1.18 H (0.77-1.02) APTT 31.2 (26.0-36.3) seconds Sodium 136 (135-145) mmol/L Potassium 4.5 (3.5-5.0) mmol/L Chloride 100 L (101-111) mmol/L Carbon Dioxide 21 L (22-32) mmol/L Anion Gap 15 H (2-11) mmol/L BUN 22 (6-24) mg/dL Creatinine 0.78 (0.67-1.17) mg/dL Est GFR ( Amer) 129.1 (>60) Est GFR (Non-Af Amer) 106.7 (>60) BUN/Creatinine Ratio 28.2 H (8-20) Glucose 212 H (70-100) mg/dL Calcium 8.7 (8.6-10.3) mg/dL Total Bilirubin 1.50 H (0.2-1.0) mg/dL AST 82 H (13-39) U/L ALT 36 (7-52) U/L Alkaline Phosphatase 123 H (34-104) U/L Total Protein 5.5 L (6.4-8.9) g/dL Albumin 3.5 (3.2-5.2) g/dL Globulin 2.0 (2-4) g/dL Albumin/Globulin Ratio 1.8 (1-3) Blood Type Antibody Screen 11/10/17 Range/Units 09:17 WBC (3.5-10.8) 10^3/ul RBC (4.00-5.40) 10^6/ul Hgb (14.0-18.0) g/dl Hct (42-52) % MCV (80-94) fL MCH (27-31) pg MCHC (31-36) g/dl RDW (10.5-15) % Plt Count (150-450) 10^3/ul MPV (7.4-10.4) um3 Neut % (Auto) (38-83) % Lymph % (Auto) (25-47) % [place] % (Auto) (0-7) % Eos % (Auto) (0-6) % Baso % (Auto) (0-2) % Absolute Neuts (auto) (1.5-7.7) 10^3/ul Absolute Lymphs (auto) (1.0-4.8) 10^3/ul Absolute Monos (auto) (0-0.8) 10^3/ul Absolute Eos (auto) (0-0.6) 10^3/ul Absolute Basos (auto) (0-0.2) 10^3/ul Absolute Nucleated RBC 10^3/ul Nucleated RBC % INR (Anticoag Therapy) (0.77-1.02) APTT (26.0-36.3) seconds Sodium (135-145) mmol/L Potassium (3.5-5.0) mmol/L Chloride (101-111) mmol/L Carbon Dioxide (22-32) mmol/L Anion Gap (2-11) mmol/L BUN (6-24) mg/dL Creatinine (0.67-1.17) mg/dL Est GFR ( Amer) (>60) Est GFR (Non-Af Amer) (>60) BUN/Creatinine Ratio (8-20) Glucose (70-100) mg/dL Calcium (8.6-10.3) mg/dL Total Bilirubin (0.2-1.0) mg/dL AST (13-39) U/L ALT (7-52) U/L Alkaline Phosphatase (34-104) U/L Total Protein (6.4-8.9) g/dL Albumin (3.2-5.2) g/dL Globulin (2-4) g/dL Albumin/Globulin Ratio (1-3) Blood Type A Positive Antibody Screen Negative Microbiology and Other Data: Microbiology 11/10/17 17:39 CLOtest - Final Gastric Antrum 11/10/17 18:00 Nasal Screen MRSA (PCR) - Final Nasal Mrsa Not Detected Assess/Plan/Problems-Billing Assessment: 47 yo M h/o etoh dependence, celiac disease p/w coffee ground emesis and melena found with symptomatic anemia secondary to multiple gastric ulcers - Patient Problems (1) Acute blood loss anemia Comment: peptic ulcer disease start oral omeprazole advance diet today again H/H stable BP lower today. H/H stable. IVF and follow (2) Alcohol dependence Comment: counseled cessation thiamine/folic acid has not required WAM US RUQ not definitive for cirrohsis but will c/w CTX for SBP prophylaxis in setting of GIB (3) Nicotine abuse Comment: nicotine replacement Status and Disposition: Blood pressure low, IVF needed. H/H stable x 24 hrs needs at least 48 hrs.
[2017-11-13] MEDS: cefTRIAXone* 1 GM in NS 0.9% 50 ML BAG IVPB SCH (19:24)
[2017-11-13] MEDS: Melatonin 3 MG TAB PO PRN (22:41)
[2017-11-13] MEDS: diPHENhydraMINE PO* 25 MG PO PRN (22:42)
[2017-11-14] MEDS: Nicotine Patch Removal NOTE FOLLOW UP SCH (04:54)
[2017-11-14 06:45] LABS: Hematocrit 28 % (42-52); Hemoglobin 9.5 g/dl (14.0-18.0); Mean Corpuscular HGB Conc 34 g/dl (31-36); Mean Corpuscular Hemoglobin 34 pg (27-31); Mean Corpuscular Volume 98 fL (80-94); Mean Platelet Volume 11.4 um3 (7.4-10.4); Platelet Count 78 10^3/ul (150-450); Red Blood Count 2.83 10^6/ul (4.00-5.40); Red Cell Distribution Width 16 % (10.5-15); White Blood Count 4.9 10^3/ul (3.5-10.8)
[2017-11-14 06:57] LABS: EGFR Non-African American 182.4 (>60)
[2017-11-14 07:08] LABS: ABS Basophils 0 10^3/ul (0-0.2); ABS Neutrophils 2.3 10^3/ul (1.5-7.7); ABS Neutrophils 2.7 10^3/ul (1.5-7.7); Monocytes % 11 % (0-7)
[2017-11-14] MEDS: Thiamine TAB* 100 MG TAB PO SCH (08:51)
[2017-11-14] MEDS: Omeprazole CAP* 20 MG PO SCH (08:51)
[2017-11-14] MEDS: Multivitamins/Minerals TAB PO SCH (08:51)
[2017-11-14] MEDS: Nicotine PATCH 14 MG/24 HR* PATCH TRANSDERM SCH (08:51)
[2017-11-14] MEDS: Folic Acid TAB* 1 MG PO SCH (08:51)
[2017-11-14 13:53] VITALS: BP 103/57
--- NOTE | 2017-11-15 05:43 | DS ---
CC: [facility] * DISCHARGE SUMMARY: DATE OF ADMISSION: 11/10/17 DATE OF DISCHARGE: 11/14/17 PRIMARY CARE PROVIDER: None. PRIMARY DIAGNOSIS: Upper GI hemorrhage secondary to gastric ulcers. SECONDARY DIAGNOSES: Include: 1. History of alcohol dependence. 2. Celiac disease. 3. Spinal stenosis. 4. Peripheral neuropathy. 5. History of self-reported fatty liver. 6. Thrombocytopenia. MEDICATIONS ON DISCHARGE: 1. Thiamine 100 mg daily. 2. Omeprazole 20 mg twice daily. 3. Folic acid 1 mg daily. PROCEDURES PERFORMED DURING HOSPITAL STAY: Upper endoscopy on 11/10/17. Impression: No esophageal varices. Multiple scattered tiny esophageal erosions with 1 slightly larger erosion with eschar on the distal esophagus, near the GE junction. This area was biopsied. Three medium sized gastric ulcers ranging from 0.5 to 1 cm, they were clean based, as well as a very large 2 to 3 cm and deep ulcer in the prepyloric antrum. This was also clean based with the exception of some flat segmented spots. These were also biopsied and there was erythema without ulceration or erosion in the duodenum. HISTORY OF PRESENT ILLNESS AND HOSPITAL COURSE: This is a 47-year-old man with past medical history as outlined above including alcohol abuse, who presented to the hospital with coffee-ground emesis and melena, subsequent drop in his hemoglobin from 10.6 to 6.9. He received total of 2 units packed red blood cells on 11/11/17. An upper endoscopy was indicated, as above, notable for multiple esophageal erosions as well as multiple gastric ulcers with 1 particularly large ulcer. CLOtest was negative at the time of discharge. It is notable that in addition to alcohol he had been taking Motrin daily. He was treated with Protonix drip for 72 hours over the course of his hospital stay, transitioned to p.o. medications. His diet was advanced, he ambulated without difficulty, he had no additional bleeding for 48 hours prior to discharge. His hemoglobin on the day of discharge was 9.5, platelets of 78, increased from a faisal of 53. There were no complications during the course of the hospital stay. The patient was counseled at length regarding smoking cessation as well as alcohol cessation, as well as initiation of his new medication, most importantly omeprazole. He acknowledged understanding. At followup, please; 1. For any stigmata of continued bleeding, can consider repeat CBC, although not necessary at this time. Please ensure medication compliance. 2. Continue to encourage alcohol cessation and tobacco cessation. 3. Biopsies from EGD are pending at the time of this discharge, please follow. 4. The patient will require repeat endoscopy in 3 months. 5. [facility] referral was made as well as information left for our PSA, Kathe Mchugh, at the time of discharge as he was discharged over the weekend. Reasons to return to the hospital include, but not limited to recurrent or worsening symptoms, including shortness of breath, chest pain, lightheadedness, loss of consciousness or near loss of consciousness, bleeding from any source were discussed with the patient and he acknowledged understanding. TIME SPENT: Greater than 60 minutes were spent on the discharge of the patient , greater than half was spent [id number] with the patient. [id number]/[facility] #: [id number] TANIYA
== END 2017-11-14 14:30 | disposition home or self-care (01) | DRG 378 ==
LOC: ED 08:30 → ICU 12:10 → MED 11-11 16:22
PROVIDERS: ADMIT Internal Medicine; ATTEND Internal Medicine
PROC: 0DD68ZX Extraction of Stomach, Via Natural or Artificial Opening Endoscopic, Diagnostic (ICD-10-PCS; 2017-11-10)
PROC: 0DD58ZX Extraction of Esophagus, Via Natural or Artificial Opening Endoscopic, Diagnostic (ICD-10-PCS; principal; 2017-11-10 13:30)
PROC: 30233N1 Transfusion of Nonautologous Red Blood Cells into Peripheral Vein, Percutaneous Approach (ICD-10-PCS; 2017-11-11)
DX: K25.4 Chronic or unspecified gastric ulcer with hemorrhage (principal); K90.41 Non-celiac gluten sensitivity; D62 Acute posthemorrhagic anemia; F10.20 Alcohol dependence, uncomplicated; Y90.0 Blood alcohol level of less than 20 mg/100 ml; M48.00 Spinal stenosis, site unspecified; G62.9 Polyneuropathy, unspecified; K90.0 Celiac disease; F17.210 Nicotine dependence, cigarettes, uncomplicated; M19.90 Unspecified osteoarthritis, unspecified site; K76.0 Fatty (change of) liver, not elsewhere classified
CPT/HCPCS: 36415; 71045; 76705; 80048; 80053; 80320; 83735; 85025; 85060; 85610; 85730; 86850; 86900; 86901; 86922; 87077; 87641; 88305; 90686; 93005; 99285; 99406; A9270-GY; G0480; J0330; J0696; J1100; J2250; J2354; J2405; J2704; J3010; J3475; P9040

== ENCOUNTER 2018-12-22 15:15 | Emergency (ER) | payer MEDICAID ==
[2018-12-22 15:40] VITALS: BP 128/78
--- NOTE | 2018-12-22 15:48 | UC ---
Skin Complaint HPI - HPI Summary HPI Summary: 48-year-old male who recently moved from [place]. He had started with a minor rash on his lower legs which has worsened over the past couple of weeks. He denies any fever or chills. He states some of the areas look like ringworm so he put antifungal medication on them without improvement. He also has a history of facial acne. - History of Current Complaint Chief Complaint: UCRespiratory Time Seen by Provider: 12/22/18 15:43 Stated Complaint: RASH Hx Obtained From: Patient Onset/Duration: Gradual Onset, Lasting Weeks Skin Exposure Onset/Duration: Weeks Ago Timing: Constant Onset Severity: Mild Current Severity: Moderate Pain Intensity: 0 Location: Other - Lower leg rash and facial rash. Facial rash is chronic. Character: Pruritus, Redness Aggravating Factor(s): Nothing Alleviating Factor(s): Nothing Associated Signs & Symptoms: Positive: Rash - Allergy/Home Medications Allergies/Adverse Reactions: Allergies Allergy/AdvReac Type Severity Reaction Status Date / Time gluten Allergy See Comment Verified 12/22/18 15:35 peanut Allergy Anaphylatic Verified 12/22/18 15:35 Shock raw vegetable Allergy Numbness Verified 12/22/18 15:35 And Tingling wheat Allergy GI Upset Verified 12/22/18 15:35 Home Medications: Home Medications Clotrimazole 1% TOPICAL (NF) [Lotrimin 1% TOPICAL (NF)] 1 % EX DAILY 12/22/18 [ History Confirmed 12/22/18] PMH/Surg Hx/FS Hx/Imm Hx - Additional Past Medical History Additional PMH: Patient has a history of facial dermatitis. Previously Healthy: Yes Other History Of: Negative For: Anticoagulant Therapy - Surgical History Surgical History: Yes Surgery Procedure, Year, and Place: SPINAL FUSION 2016 - Family History Known Family History: Positive: Non-Contributory - Social History Alcohol Use: Daily Alcohol Amount: 5 beers Substance Use Type: None Substance Use Comment - Amount & Last Used: 2 weeks ago Smoking Status (MU): Heavy Every Day Tobacco Smoker Type: Cigarettes Amount Used/How Often: half a pack a day Have You Smoked in the Last Year: Yes Household Exposure Type: Cigarettes - Immunization History Most Recent Influenza Vaccination: 11/11/17 Most Recent Pneumonia Vaccination: unknown Review of Systems All Other Systems Reviewed And Are Negative: Yes Skin: Positive: Rash - Rash both legs which has progressively worsened over the past 2 weeks. Has a history of chronic facial rash. Is Patient Immunocompromised?: No Physical Exam Triage Information Reviewed: Yes Appearance: Well-Appearing, No Pain Distress, Well-Nourished Vital Signs: Initial Vital Signs Temp 99.3 F 12/22/18 15:36 Pulse 108 12/22/18 15:36 Resp 18 12/22/18 15:36 BP 128/78 12/22/18 15:36 Pulse Ox 96 12/22/18 15:36 Vital Signs Reviewed: Yes Skin: Positive: Rashes - Patient has what appears to be facial dermatitis, possibly acne which is a chronic problem. The rash on his lower legs show some cellulitis to the lower legs around the ankle with some dry scaly rash to it. He has some circular areas on his upper legs which appear to be ringworm. The lower legs area is warm to touch with no streaking. He has good peripheral pulses neuro sensation capillary refill. Course/Dx - Course Course Of Treatment: I'm starting the patient on a course of cephalexin and he just recently purchased antifungal lotion which she's going to apply to the area 2 or 3 times a day. He definitely needs a alarm operator however because he just recently moved here and he is new to [place] Medicaid system he does not have a primary care provider visit yet. I advised him to call the primary care provider on his Medicaid card and then get a referral from there to a alarm operator. The patient is agreeable to this plan of action. He is to elevate his legs and feet as much as possible. - Diagnoses Provider Diagnosis: Cellulitis of left anterior lower leg Discharge ED - Sign-Out/Discharge Documenting (check all that apply): Patient Departure All imaging exams completed and their final reports reviewed: No Studies - Discharge Plan Condition: Fair Disposition: HOME Prescriptions: Cephalexin CAP* [Keflex 500 CAP*] 500 mg PO TID 10 Days #30 cap Patient Education Materials: Cellulitis (DC) Referrals: No Primary Care Phys,NOPCP [Primary Care Provider] - [facility] [Outside] Additional Instructions: Call your primary care provider and make an appointment to be seen for a referral to a alarm operator. Continue to apply the Lotrimin cream 2-3 times a day to the areas. Go to the emergency room if you develop fever, chills or your legs become more red and swollen. Elevate as much as possible. Apply warm moist compresses to your lower legs 4-6 times a day for 20 minutes each time. - Billing Disposition and Condition Condition: FAIR Disposition: Home
== END 2018-12-22 16:00 | disposition home or self-care (01) ==
LOC: UCEAST 15:15
DX: L03.116 Cellulitis of left lower limb (principal); R21 Rash and other nonspecific skin eruption; F17.210 Nicotine dependence, cigarettes, uncomplicated; Z91.018 Allergy to other foods; Z91.010 Allergy to peanuts
CPT/HCPCS: 99212; G0463